=== PATIENT | male | born 1955 | race Caucasian/White ===

== ENCOUNTER → 2016-12-01 | Outpatient (CLI) | payer OTHER | END | disposition home or self-care (01) | LOC: CFH 06:55 | PROVIDERS: ATTEND Physician Assistant Surgical | DX: M47.896 Other spondylosis, lumbar region (principal); M54.16 Radiculopathy, lumbar region; M47.897 Other spondylosis, lumbosacral region; M48.07 Spinal stenosis, lumbosacral region; M47.895 Other spondylosis, thoracolumbar region; M96.842 Postprocedural seroma of a musculoskeletal structure following a musculoskeletal system procedure; R20.0 Anesthesia of skin | CPT/HCPCS: 72148 ==

== ENCOUNTER 2021-04-21 12:25 | Emergency (ER) | payer OTHER ==
[~2021-04-21] VITALS: Ht 185.4 cm; Wt 103.0 kg
[2021-04-21] MEDS ORDERED: HYDROmorphone 1 MG/ML, 1ML INJ IV ONE (13:30)
[2021-04-21] MEDS ORDERED: PROPOFOL 10 MG/ML, 20ML ONE (13:34)
[2021-04-21] MEDS ORDERED: HYDROmorphone 2 MG/ML, 1ML ONE (13:35)
--- NOTE | 2021-04-21 13:46 | NUR ---
TASK RN NOTE: SHIRT REMOVED, IV STARTED, PT MEDICATED PER EMAR. PROCEDURAL SEDATION PAPERWORK AND MEDICATION PREPARED. CONSENT SIGNED.
[2021-04-21] MEDS ORDERED: ONDANSETRON 2MG/ML, 2ML ONE (13:47)
[2021-04-21] MEDS ORDERED: KETAMINE 10 MG/ML, 20ML ONE (13:51)
[2021-04-21] MEDS ORDERED: ONDANSETRON 2MG/ML, 2ML IVPush ONE (14:00)
[2021-04-21] MEDS ORDERED: KETAMINE 100 MG/ML, 5ML IV ONE (14:30)
[2021-04-21] MEDS ORDERED: PROPOFOL 10 MG/ML, 20ML IVPush ONE (14:30)
--- NOTE | 2021-04-21 14:57 | NUR ---
CONCIOUS SEDATION PROCEDURE DONE, XRAY IN NOW IMAGING PT.
--- NOTE | 2021-04-21 15:03 | NUR ---
PT RESTING CALMLY IN BED AT THIS TIME. PT AT BEDSIDE. PT DENIED ANY PAIN CURRENTLY. VSS. WILL CONTINUE TO MONITOR.
[2021-04-21 16:36] VITALS: BP 131/66
[2021-04-21] MEDS ORDERED: ASPI-963 PO (16:41)
== END 2021-04-21 16:37 | disposition home or self-care (01) ==
LOC: ED 13:13
DX: S43.005A Unspecified dislocation of left shoulder joint, initial encounter (principal); X58.XXXA Exposure to other specified factors, initial encounter; Y93.89 Activity, other specified; Y92.89 Other specified places as the place of occurrence of the external cause; Y99.8 Other external cause status
CPT/HCPCS: 23650; 73020; 73030; 96374; 96375; 99152; 99285; J1170; J2405